=== PATIENT | female | born 1940 | race Caucasian/White ===

== ENCOUNTER 2023-09-19 12:10 | Outpatient (REF) | payer SELFPAY ==
[2023-09-19 16:22] LABS: Mean Corpuscular HGB Conc 33.3 g/dl (31.0-35.0); Mean Corpuscular Hemoglobin 30.5 pg (27.0-33.0); Mean Corpuscular Volume 91.6 fL (80.0-98.0); Mean Platelet Volume 11.4 fL (9.4-12.3); Platelet Count 151 X10*3/uL (160-400); Red Blood Count 1.54 X10*6/uL (4.20-5.50); Red Cell Distribution Width 21.5 % (11.0-16.0); White Blood Count 6.8 X10*3/uL (4.8-10.8)
[2023-09-19 16:28] LABS: NRBC Pct Auto 3.1 /100WBC (0.0-0.2)
[2023-09-19 17:46] LABS: Hemoglobin 4.7 g/dl (12.0-16.0)
[2023-09-19 17:47] LABS: Hematocrit 14.1 % (37.0-47.0)
[2023-09-20 07:20] LABS: Band Neutrophils Percent 5 % (3-5); Blast Percent 20 %; Blastocytes Absolute 1.4 X10*3/uL; Lymphocytes Absolute Manual 2.4 X10*3/uL (1.2-4.9); Lymphocytes Percent Manual 35 % (20-40); Metamyelocytes Absolute 0.1 X10*3/uL; Metamyelocytes Percent 1 %; Monocytes Percent Manual 15 % (2-11); Neutrophils Percent Manual 24 % (45-73); Nucleated Red Blood Cells 5 /100WBC (0-0)
[2023-09-20 07:27] LABS: Hypochromasia 1+ (5-14) /OIF; Ovalocytes 1+ (5-14) /OIF; RBC Morphology NOTED
[2023-09-20 07:30] LABS: Large Platelet PRESENT; Platelet Estimate SLIGHTLY DECREASED (NORMAL); Platelet Morphology Comment NOTED; Toxic Granulation PRESENT
== END 2023-09-19 12:11 | disposition home or self-care (01) ==
LOC: HO.HVNA 12:10
PROVIDERS: Visit Provider Internal Medicine
DX: C95.00 Acute leukemia of unspecified cell type not having achieved remission (principal); D53.9 Nutritional anemia, unspecified; I48.20 Chronic atrial fibrillation, unspecified
CPT/HCPCS: 36415; 85007; 85025; 85027